=== PATIENT | female | born 1985 | race Caucasian/White ===

== ENCOUNTER → 2018-06-26 | Outpatient (CLI) | payer OTHER ==
[~2018-06-26] MED LIST: ASPI-1471 PO; PREN-127 PO
[2018-06-26 09:31] LABS: PLATELET COUNT, AUTOMATED 296 K/uL (150-450)
== END ==
LOC: LAB 08:20
PROVIDERS: ATTEND Obstetrics & Gynecology
DX: Z34.91 Encounter for supervision of normal pregnancy, unspecified, first trimester (principal); R82.79 Other abnormal findings on microbiological examination of urine
CPT/HCPCS: 36415; 81001; 84702; 85025; 86592; 86703; 86762; 86850; 86900; 86901; 87088; 87340

== ENCOUNTER → 2018-07-03 | Outpatient (CLI) | payer OTHER ==
--- NOTE | 2018-07-03 17:41 | RADIOLOGY IMAGING REPORT ---
FACILITY: [facility] - [place] PATIENT NAME: Cheryl Diaz : 1985 MR: [id number] V: [id number] EXAM DATE: [id number] ORDERING PHYSICIAN: JOSELITO ARAUZ TECHNOLOGIST: Location: [facility] - [place], [place] Patient: Cheryl Diaz : 1985 Visit/Account:[id number] Date of Sevice: 07/03/2018 EXAMINATION: Transvaginal OB Ultrasound < 14 weeks 07/03/2018 8:17 AM HISTORY: See Comments. LMP 05/22/2018: EGA 6 weeks 0 COMPARISON STUDIES: none. FINDINGS: Gestational sac: intrauterine and unremarkable Yolk sac: Visualized pole: Visualized cardiac activity: 106 Estimated gestational age: 5 weeks 6 days based on average crown-rump length 2.5 mm Subchorionic hemorrhage: Heterogeneous subchorionic endometrial collection measures 2.6 x 0 point alden timeter. Uterus: Myometrium does appear to extend down in the fundus suggesting arcuate uterine configuration. The gestational sac is oriented towards the left horn. Rounded asymmetric thickening of the anterior myometrium is also present suggesting leiomyomatous change. Below this there is a hypoechoic band tr aversing the myometrium suggestive of section scarring although if patient has not had that this may simply be artifact. Maternal ovaries: negative Adnexa: negative Free pelvic fluid: none IMPRESSION: 1. See above discussion regarding the uterine configuration and findings. 2. Single viable IUP towards the left frontal horn but this is not a cornual ectopic. EGA by crown-ru mp length is 5 weeks 6 days which correlates well with expected dates. Report Dictated By: Orlando Meehan MD at 07/03/2018 5:28 PM Report E-Signed By: Orlando Meehan MD at 07/03/2018 5:38 PM WSN:[id number]
== END ==
LOC: US 01:14
PROVIDERS: ATTEND Obstetrics & Gynecology
DX: Z34.91 Encounter for supervision of normal pregnancy, unspecified, first trimester (principal); Z3A.01 Less than 8 weeks gestation of pregnancy
CPT/HCPCS: 76801

== ENCOUNTER 2018-07-12 07:41 | Emergency (ER) | payer OTHER ==
--- NOTE | 2018-07-12 08:11 | ER Report ---
History and Physical Time Seen By MD: 08:00 Hx. of Stated Complaint: PATIENT REPORTS BLEEDING AT 7.5 WEEKS. STARTED LAST NIGHT AROUND 2100. PATIENT HAS HAD 2 MISCARRIAGES AND 2 LIVE BIRTHS. DOES NOT FEEL LIKE THE PREVIOUS MISCARRIAGES. HPI/ROS CHIEF COMPLAINT: Vaginal been bleeding with HISTORY OF PRESENT ILLNESS: 32-year-old female she is a G5 para 2 with 2 ABGs comes to the emergency department today 7 weeks by date with vaginal bleeding that began last evening started is read-out more of a dark maroon color no associated cramping or pain no back pain no discharge otherwise. Patient states that her 2 miscarriages both had associated pain and cramping between 5 and 6 weeks at term. Both of her viable pregnancies were full term and shoulder are doing great. Patient denies nausea vomiting diarrhea fever chills denies any trauma or additional complaints noted an ultrasound done several weeks ago and a beta Quant baseline is also been established. REVIEW OF SYSTEMS: Respiratory: No cough, no dyspnea. Cardiovascular: No chest pain, no palpitations. Gastrointestinal: No vomiting, no abdominal pain. Musculoskeletal: No back pain. Remainder of the 14 system rev: Yes Allergies: Coded Allergies: No Known Drug Allergies (Unverified , 06/26/18) Home Meds Reported Medications Vits W-Ca,Fe,Fa(<1MG) ( VITAMINS) 1 Each Tablet, 1 EACH PO DAILY, TAB 06/26/18 Aspirin (ASPIR 81) 81 Mg Tablet.dr, 1 TAB PO QDAY, TAB 06/26/18 Reviewed Nurses Notes: Yes Old Medical Records Reviewed: Yes Smoking Status: Former Smoker Constitutional Vital Sign - Last 24 Hours 07/12/18 07/12/18 07/12/18 07/12/18 07:57 07:59 08:01 08:21 Pulse 88 88 B/P (MAP) 123/90 (101) Pulse Ox 96 95 O2 Delivery Room Air 07/12/18 07/12/18 07/12/18 08:41 09:01 09:21 Pulse 91 92 79 Pulse Ox 87 96 96 Physical Exam General Appearance: The patient is alert, has no immediate need for airway protection and no current signs of toxicity. [ ] Eyes: Pupils equal and round no injection. Respiratory: Chest is non tender, lungs are clear to auscultation. Cardiac: regular rate and rhythm [ ] Gastrointestinal: Abdomen is soft and non tender, no masses, bowel sounds n ormal. Musculoskeletal: Neck: Neck is supple and non tender. Extremities have full range of motion and are non tender. Skin: No rashes or lesions. Examination deferred DIFFERENTIAL DIAGNOSIS: After history and physical exam differential diagnosis was considered for threatened AB complete AB no bleeding with Medical Decision Making Data Points Result Diagram: 07/12/18 0824 Laboratory Hematology Test 07/12/18 07:52 07/12/18 08:24 Urine Color Yellow Urine Clarity Slightly-cloudy Urine pH 5.0 pH (4.8-9.5) Urine Specific Colbert 1.028 Urine Protein Negative mg/dL (NEGATIVE) Urine Glucose (UA) Negative mg/dL (NEGATIVE) Urine Ketones Negative mg/dL (NEGATIVE) Urine Blood Large (NEGATIVE) Urine Nitrite Negative (NEGATIVE) Urine Bilirubin Negative (NEGATIVE) Urine Urobilinogen Negative mg/dL (0.2-1.9) Urine Leukocyte Esterase Negative (NEGATIVE) Urine RBC 2 /HPF (0-2/HPF) Urine WBC 2 /HPF (0-5/HPF) Urine Squamous Epithelial Cells Many /LPF (</=FEW) Urine Bacteria Few /HPF (NONE-FEW) Urine Mucus Few /HPF (NONE-FEW) Red Blood Count 4.90 M/uL (4.17-5.56) Mean Corpuscular Volume 86.2 fL (80.0-96.0) Mean Corpuscular Hemoglobin 30.1 pg (26.0-33.0) Mean Corpuscular Hemoglobin Concent 35.0 g/dL (32.0-36.0) Red Cell Distribution Width 12.2 % (11.5-14.5) Mean Platelet Volume 8.6 fL (7.2-11.1) Neutrophils (%) (Auto) 63.9 % (39.4-72.5) Lymphocytes (%) (Auto) 27.6 % (17.6-49.6) Monocytes (%) (Auto) 7.5 % (4.1-12.4) Eosinophils (%) (Auto) 0.7 % (0.4-6.7) Basophils (%) (Auto) 0.3 % (0.3-1.4) Nucleated RBC Relative Count (auto) 0.0 /100WBC Neutrophils # (Auto) 5.4 K/uL (2.0-7.4) Lymphocytes # (Auto) 2.3 K/uL (1.3-3.6) Monocytes # (Auto) 0.6 K/uL (0.3-1.0) Eosinophils # (Auto) 0.1 K/uL (0.0-0.5) Basophils # (Auto) 0.0 K/uL (0.0-0.1) Nucleated RBC Absolute Count (auto) 0.00 K/uL Human Chorionic Gonadotropin, Quant [id number] mIU/ml Chemistry Test 07/12/18 07:52 07/12/18 08:24 Urine Color Yellow Urine Clarity Slightly-cloudy Urine pH 5.0 pH (4.8-9.5) Urine Specific Colbert 1.028 Urine Protein Negative mg/dL (NEGATIVE) Urine Glucose (UA) Negative mg/dL (NEGATIVE) Urine Ketones Negative mg/dL (NEGATIVE) Urine Blood Large (NEGATIVE) Urine Nitrite Negative (NEGATIVE) Urine Bilirubin Negative (NEGATIVE) Urine Urobilinogen Negative mg/dL (0.2-1.9) Urine Leukocyte Esterase Negative (NEGATIVE) Urine RBC 2 /HPF (0-2/HPF) Urine WBC 2 /HPF (0-5/HPF) Urine Squamous Epithelial Cells Many /LPF (</=FEW) Urine Bacteria Few /HPF (NONE-FEW) Urine Mucus Few /HPF (NONE-FEW) White Blood Count 8.4 k/uL (4.5-11.0) Red Blood Count 4.90 M/uL (4.17-5.56) Hemoglobin 14.8 g/dL (12.0-16.0) Hematocrit 42.2 % (34.0-47.0) Mean Corpuscular Volume 86.2 fL (80.0-96.0) Mean Corpuscular Hemoglobin 30.1 pg (26.0-33.0) Mean Corpuscular Hemoglobin Concent 35.0 g/dL (32.0-36.0) Red Cell Distribution Width 12.2 % (11.5-14.5) Platelet Count 238 K/uL (150-450) Mean Platelet Volume 8.6 fL (7.2-11.1) Neutrophils (%) (Auto) 63.9 % (39.4-72.5) Lymphocytes (%) (Auto) 27.6 % (17.6-49.6) Monocytes (%) (Auto) 7.5 % (4.1-12.4) Eosinophils (%) (Auto) 0.7 % (0.4-6.7) Basophils (%) (Auto) 0.3 % (0.3-1.4) Nucleated RBC Relative Count (auto) 0.0 /100WBC Neutrophils # (Auto) 5.4 K/uL (2.0-7.4) Lymphocytes # (Auto) 2.3 K/uL (1.3-3.6) Monocytes # (Auto) 0.6 K/uL (0.3-1.0) Eosinophils # (Auto) 0.1 K/uL (0.0-0.5) Basophils # (Auto) 0.0 K/uL (0.0-0.1) Nucleated RBC Absolute Count (auto) 0.00 K/uL Human Chorionic Gonadotropin, Quant [id number] mIU/ml Urinalysis Test 07/12/18 07:52 Urine Color Yellow Urine Clarity Slightly-cloudy Urine pH 5.0 pH (4.8-9.5) Urine Specific Colbert 1.028 Urine Protein Negative mg/dL (NEGATIVE) Urine Glucose (UA) Negative mg/dL (NEGATIVE) Urine Ketones Negative mg/dL (NEGATIVE) Urine Blood Large (NEGATIVE) Urine Nitrite Negative (NEGATIVE) Urine Bilirubin Negative (NEGATIVE) Urine Urobilinogen Negative mg/dL (0.2-1.9) Urine Leukocyte Esterase Negative (NEGATIVE) Urine RBC 2 /HPF (0-2/HPF) Urine WBC 2 /HPF (0-5/HPF) Urine Squamous Epithelial Cells Many /LPF (</=FEW) Urine Bacteria Few /HPF (NONE-FEW) Urine Mucus Few /HPF (NONE-FEW) ED Course/Re-evaluation ED Course ED clinical course 32-year-old female with a 7 week term comes in with a threatened AB vaginal bleeding ultrasound does show a viable IUP heart rate of 147 weeks and 3 days no fluid beta Quant as elevated appropriately rest of her workup is essentially negative we'll diagnose with a threatened AB and have her follow-up with [facility] Decision to Disposition Date: July 12, 2018 Decision to Disposition Time: 09:44 Depart Departure Latest Vital Signs Vital Signs Date Time Temp Pulse Resp B/P (MAP) Pulse Ox O2 Delivery O2 Flow Rate FiO2 07/12/18 09:21 79 96 07/12/18 07:59 123/90 (101) 07/12/18 07:57 Room Air Impression: Primary Impression: Threatened Condition: Improved Disposition: HOME OR SELF-CARE Referrals: LITTLE NAVA MD 5 Days Patient Instructions: Threatened Miscarriage (DC) PAM SULLIVAN MD July 12, 2018 08:11
[2018-07-12 08:30] LABS: PLATELET COUNT, AUTOMATED 238 K/uL (150-450)
[2018-07-12 09:51] VITALS: BP 121/73
--- NOTE | 2018-07-12 09:51 | RADIOLOGY IMAGING REPORT ---
FACILITY: [facility] PATIENT NAME: Cheryl Diaz : 1985 MR: [id number] V: [id number] EXAM DATE: ORDERING PHYSICIAN: PAM SULLIVAN TECHNOLOGIST: Location: [facility] Patient: Cheryl Diaz : 1985 Visit/Account:[id number] Date of Sevice: 07/12/2018 ADDENDUM #1 ADDENDUM: I have reviewed the images and the ultrasound worksheet with the medical lab technologist. An addition al finding is a 1.6 x 1.3 x 2.9 cm subchorionic hemorrhage along the gestational sac. The hemorrhage does not compress or displace the gestational sac. Other findings are as reported previously. Report Dictated By: Santy Beltran MD at 07/12/2018 11:48 AM Report E-Signed By: Santy Beltran MD at 07/12/2018 11:52 AM ORIGINAL REPORT Transvaginal obstetrical ultrasound, less than 14 weeks. HISTORY: Vaginal bleeding, 6 weeks 8 days by ultrasound of 07/03/2018. COMPARISON: 07/03/2018. A single gestational sac is present within the endometrial cavity. A single living fetus is present w ithin the gestational sac. A yolk sac is present. [place]-rump length measures 11.5 mm consistent with an ultrasound age of 7 weeks 3 days. heart rate is 140 bpm. No abnormal extramembranous fluid c ollections. 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 No free fluid in the maternal cul-de-sac. The pelvic vessels are prominent. The right and left ovarie s are not visualized. Portions of the pelvis are obscured by bowel gas. IMPRESSION: Single living intrauterine , 7 weeks 3 days by ultrasound criteria with appropriate interval growth compared to previous. Nonvisualization of the ovaries. Results were discussed with PAM SULLIVAN at 07/12/2018 9:47 AM. Report Dictated By: Santy Beltran MD at 07/12/2018 9:36 AM Report E-Signed By: Santy Beltran MD at 07/12/2018 9:48 AM WSN:[id number]
== END 2018-07-12 09:53 | disposition home or self-care (01) ==
LOC: ER 08:08
DX: O20.0 Threatened abortion (principal); Z3A.01 Less than 8 weeks gestation of pregnancy
CPT/HCPCS: 36415; 76817; 81001; 84702; 85025; 86900; 86901; 99284

== ENCOUNTER → 2018-08-06 | Outpatient (CLI) | payer OTHER ==
[~2018-08-06] MED LIST changes: +DOXY1TAB3 PO; +ONDA4TAB97 PO
== END ==
LOC: LAB 08:37
PROVIDERS: ATTEND Student in an Organized Health Care Education/Training Program
DX: Z34.91 Encounter for supervision of normal pregnancy, unspecified, first trimester (principal)
CPT/HCPCS: 87491; 87591

== ENCOUNTER → 2018-10-05 | Outpatient (CLI) | payer OTHER ==
[~2018-10-05] MED LIST changes: +CLOT15CR62 TP
--- NOTE | 2018-10-05 13:20 | RADIOLOGY IMAGING REPORT ---
FACILITY: [facility] - [place] PATIENT NAME: Cheryl Diaz : 1985 MR: [id number] V: [id number] EXAM DATE: [id number] ORDERING PHYSICIAN: JEFF IGLESIAS TECHNOLOGIST: Location: [facility] [place] Patient: Cheryl Diaz : 1985 Visit/Account:[id number] Date of Sevice: 10/05/2018 OB Ultrasound > 14 weeks with anatomic evaluation HISTORY: Anatomic survey COMPARISON STUDIES: Ultrasound dated July 12, 2018 FINDINGS: Intrauterine gestations: one presentation: Vertex heart rate: 156 bpm Amniotic fluid index: 17.0 cm Largest amniotic fluid pocket 4.8 cm Placenta: Anterior without previa Uterus: Gravid. Note is made of a septum along the uterine fundus. Maternal adnexa: Unremarkable Cervix: long and closed Gestational Parameters: BPD: 4.68 cm 20 weeks and 2 days. 79th percentile HC: 17.68 cm 20 weeks and 2 days. 77th percentile AC: 14.49 cm 19 weeks and 6 days. 58 percentile FL: 3.10 cm 19 weeks and 5 days. 49th percentile Average ultrasound age (AUA): 20 weeks and 1 day. Estimated gestational age based on LMP datin weeks and 3 days HARRIETT: 02/19/2019 based on today's ultrasound age Estimated weight (EFW): 312 g +/-46 g EFW: 66 percentile Anatomic Survey: Intracranial structures, 4-chamber heart, stomach, kidneys, urinary bladder, spine, 3-vessel cord and cord insertion are unremarkable. Two upper and two lower extremities visualized. IMPRESSION: 1. Single live intrauterine gestation; estimated ultrasound age 20 weeks and 1 day. 2. Unremarkable anatomic survey 3. Incidental note of what appears to be an arcuate configuration of the uterus and less likely bico rnuate urination. Report Dictated By: Josesito Capone MD at 10/05/2018 1:08 PM Report E-Signed By: Josesito Capone MD at 10/05/2018 1:13 PM WSN:[id number]
== END ==
LOC: US 09:54
PROVIDERS: ATTEND Student in an Organized Health Care Education/Training Program
DX: Z3A.14 14 weeks gestation of pregnancy (principal)